=== PATIENT | male | born 1990 | race Caucasian/White ===

== ENCOUNTER 2020-07-17 01:55 | Emergency (ER) | payer BC ==
[~2020-07-17] VITALS: Ht 182.9 cm; Wt 107.9 kg
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
[2020-07-17 04:25] VITALS: BP 137/80
== END 2020-07-17 04:27 | disposition home or self-care (01) ==
LOC: M ED 01:55
DX: S76.112A Strain of left quadriceps muscle, fascia and tendon, initial encounter (principal); W01.0XXA Fall on same level from slipping, tripping and stumbling without subsequent striking against object, initial encounter; Y92.71 Barn as the place of occurrence of the external cause; Y93.K9 Activity, other involving animal care; Y99.0 Civilian activity done for income or pay

== ENCOUNTER 2020-09-07 08:18 | Emergency (ER) | payer OTHER, BC ==
[~2020-09-07] VITALS: Ht 182.9 cm; Wt 106.8 kg
[2020-09-07] MEDS ORDERED: ISOVUE-370 76% 100ML VIAL As Ordered ONE (08:45)
[2020-09-07 08:56] LABS: BASO % 0.3 % (0.0-1.0); EOS # 0.1 10^3/uL (0.0-0.5); EOS % 1.4 % (0.0-3.0); HEMATOCRIT 43.5 % (42.0-52.0); HEMOGLOBIN 14.6 g/dl (13.5-17.5); LYMPH # 2.9 10^3/uL (1.5-5.0); LYMPH % 28.1 % (24.0-44.0); MEAN CORPUSCULAR HEMOGLOBIN 29.3 pg (27.0-33.0); MEAN CORPUSCULAR HGB CONC 33.6 g/dl (32.0-36.5); MEAN CORPUSCULAR VOLUME 87.2 fl (80.0-96.0); MONO % 9.5 % (2.0-8.0); NEUTROPHILS # 6.3 10^3/uL (1.5-8.5); NEUTROPHILS % 60.4 % (36.0-66.0); PLATELET COUNT, AUTOMATED 199 10^3/uL (150-450); RED BLOOD COUNT 4.99 10^6/uL (4.30-6.10); WHITE BLOOD COUNT 10.3 10^3/uL (4.0-10.0)
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
[2020-09-07 09:29] LABS: ALBUMIN 4.3 GM/DL (3.2-5.2); BILIRUBIN,DIRECT 0.1 MG/DL (0.0-0.2); BILIRUBIN,TOTAL 0.4 MG/DL (0.2-1.0); TOTAL PROTEIN 7.5 GM/DL (6.4-8.2)
[2020-09-07 09:53] LABS: APPEARANCE, URINE CLEAR (CLEAR); BACTERIA, URINE AUTO NEGATIVE (NEGATIVE); BILIRUBIN, URINE AUTO NEGATIVE (NEGATIVE); BLOOD, URINE BLOOD NEGATIVE (NEGATIVE); COLOR, URINE YELLOW (YELLOW); GLUCOSE, URINE (UA) AUTO NEGATIVE (NEGATIVE); KETONE, URINE AUTO TRACE mg/dL (NEGATIVE); LEUKOCYTE ESTERASE, URINE AUTO NEGATIVE (NEGATIVE); NITRITE, URINE AUTO NEGATIVE (NEGATIVE); PROTEIN, URINE AUTO NEGATIVE (NEGATIVE); RBC, URINE AUTO 0 /HPF (0-3); SPECIFIC GRAVITY URINE AUTO 1.043 (1.002-1.035); SQUAMOUS EPITHELIAL CELL UR AU 0 /HPF (0-6); UROBILINOGEN, URINE AUTO 0.2 mg/dL (0.0-2.0); WBC, URINE AUTO 1 /HPF (0-3)
[2020-09-07 10:43] VITALS: BP 137/83
== END 2020-09-07 10:48 | disposition home or self-care (01) ==
LOC: M ED 08:18 → EDBD 08:18 → M ED 10:48
DX: R07.81 Pleurodynia (principal); M25.562 Pain in left knee; V49.00XA Driver injured in collision with unspecified motor vehicles in nontraffic accident, initial encounter; J34.1 Cyst and mucocele of nose and nasal sinus
CPT/HCPCS: 36415; 70450; 71260; 72125; 74177; 80047; 80076; 81001; 85025; 86850; 86900; 86901; 99284; Q9967

== ENCOUNTER 2022-12-17 22:35 | Emergency (ER) | payer OTHER, BC ==
[~2022-12-17] VITALS: Ht 182.9 cm; Wt 121.3 kg
[2022-12-17 22:36] VITALS: BP 143/91; TEMP 97.6; O2SAT 100
== END 2022-12-18 00:34 | disposition home or self-care (01) ==
LOC: M ED 22:35
DX: S00.83XA Contusion of other part of head, initial encounter (principal); W22.09XA Striking against other stationary object, initial encounter; Y99.0 Civilian activity done for income or pay

== ENCOUNTER 2024-02-08 09:29 | Emergency (ER) | payer BC, OTHER ==
[~2024-02-08] VITALS: Ht 182.9 cm; Wt 122.2 kg
[2024-02-08] MEDS: IBUPROFEN 600MG TAB PO ONE (11:27)
[2024-02-08 11:41] VITALS: BP 160/90; TEMP 98.4; O2SAT 97
== END 2024-02-08 11:45 | disposition home or self-care (01) ==
LOC: M ED 09:29
DX: S93.401A Sprain of unspecified ligament of right ankle, initial encounter (principal); W01.0XXA Fall on same level from slipping, tripping and stumbling without subsequent striking against object, initial encounter; F17.200 Nicotine dependence, unspecified, uncomplicated; Y92.007 Garden or yard of unspecified non-institutional (private) residence as the place of occurrence of the external cause; Y93.89 Activity, other specified; Y99.9 Unspecified external cause status

== ENCOUNTER 2024-04-21 16:39 | Emergency (ER) | payer BC ==
[~2024-04-21] VITALS: Ht 182.9 cm; Wt 126.0 kg
[2024-04-21] MEDS ORDERED: BENZ200C70 (16:48)
[2024-04-21] MEDS ORDERED: AMOX875T2 (16:48)
[2024-04-21 19:16] LABS: BASO % 0.1 % (0.0-1.0); EOS # 0.2 10^3/uL (0.0-0.5); EOS % 2.2 % (0.0-3.0); HEMATOCRIT 41.1 % (42.0-52.0); LYMPH # 1.7 10^3/uL (1.5-5.0); LYMPH % 19.6 % (24.0-44.0); MEAN CORPUSCULAR HEMOGLOBIN 29.2 pg (27.0-33.0); MEAN CORPUSCULAR HGB CONC 34.1 g/dl (32.0-36.5); MEAN CORPUSCULAR VOLUME 85.8 fl (80.0-96.0); MONO % 11.1 % (2.0-8.0); NEUTROPHILS # 5.8 10^3/uL (1.5-8.5); NEUTROPHILS % 66.7 % (36.0-66.0); PLATELET COUNT, AUTOMATED 197 10^3/uL (150-450); RED BLOOD COUNT 4.79 10^6/uL (4.30-6.10); WHITE BLOOD COUNT 8.6 10^3/uL (4.0-10.0)
[2024-04-21 19:42] LABS: BLOOD UREA NITROGEN 15 MG/DL (9-23); CALCIUM LEVEL 9.9 MG/DL (8.5-10.1); CARBON DIOXIDE LEVEL 26 MMOL/L (20-31); CHLORIDE LEVEL 106 MMOL/L (98-107); CREATININE FOR GFR 0.77 MG/DL (0.70-1.30); GLOMERULAR FILTRATION RATE > 60.0 (>60); GLUCOSE, FASTING 97 MG/DL (60-100); POTASSIUM SERUM 3.7 MMOL/L (3.5-5.1); SODIUM LEVEL 138 MMOL/L (136-145)
[2024-04-21] MEDS: BENZONATATE 100MG CAPSULE PO ONE (19:57)
[2024-04-21] MEDS ORDERED: AZIT-12 PO (20:34)
[2024-04-21 20:39] VITALS: BP 135/73; TEMP 99.2; O2SAT 96
== END 2024-04-21 20:58 | disposition home or self-care (01) ==
LOC: M ED 16:39
DX: J15.7 Pneumonia due to Mycoplasma pneumoniae (principal); Z79.2 Long term (current) use of antibiotics; Z79.899 Other long term (current) drug therapy

== ENCOUNTER 2024-08-11 18:58 | Emergency (ER) | payer BC ==
[~2024-08-11] VITALS: Ht 182.9 cm; Wt 121.9 kg
[~2024-08-11 18:58] MED LIST: AMOX875T2; AZIT-12 PO; BENZ200C70
[2024-08-11 19:05] VITALS: BP 154/95; TEMP 97.5; O2SAT 98
[2024-08-11] MEDS: IBUPROFEN 600MG TAB PO ONE (20:44)
== END 2024-08-11 21:13 | disposition home or self-care (01) ==
LOC: M ED 18:58
DX: S90.31XA Contusion of right foot, initial encounter (principal); L60.0 Ingrowing nail; W55.22XA Struck by cow, initial encounter; Y92.71 Barn as the place of occurrence of the external cause; Y93.89 Activity, other specified; Y99.0 Civilian activity done for income or pay

== ENCOUNTER 2024-10-27 08:03 | Emergency (ER) | payer BC ==
[~2024-10-27] VITALS: Ht 182.9 cm; Wt 124.9 kg
[2024-10-27 09:06] LABS: KETONE, URINE AUTO RFX NEGATIVE (NEGATIVE); LEUKOCYTE ESTERASE UR AUTO RFX NEGATIVE (NEGATIVE); MUCUS, URINE RFX SMALL (NEGATIVE); NITRITE, URINE AUTO RFX NEGATIVE (NEGATIVE); RBC, URINE AUTO RFX 0 /HPF (0-3); SQUAM EPITHELIAL CELL UR AURFX 0 /HPF (0-6); WBC, URINE AUTO RFX 0 /HPF (0-3)
[2024-10-27 09:54] LABS: BASO % 0.3 % (0.0-1.0); EOS # 0.2 10^3/uL (0.0-0.5); EOS % 2.9 % (0.0-3.0); HEMATOCRIT 41.8 % (42.0-52.0); HEMOGLOBIN 14.2 g/dl (13.5-17.5); LYMPH # 2.1 10^3/uL (1.5-5.0); LYMPH % 33.5 % (24.0-44.0); MEAN CORPUSCULAR VOLUME 85.5 fl (80.0-96.0); MONO # 0.4 10^3/uL (0.0-0.8); NEUTROPHILS # 3.5 10^3/uL (1.5-8.5); NEUTROPHILS % 56.1 % (36.0-66.0); PLATELET COUNT, AUTOMATED 197 10^3/uL (150-450); RED BLOOD COUNT 4.89 10^6/uL (4.30-6.10); WHITE BLOOD COUNT 6.3 10^3/uL (4.0-10.0)
[2024-10-27 10:42] LABS: LIPASE 31 U/L (12-53)
[2024-10-27 10:44] LABS: ALKALINE PHOSPHATASE 87 U/L (40-129); ALT/SGPT 29 U/L (7.0-40); AST/SGOT 24 U/L (<34); BILIRUBIN,DIRECT 0.2 MG/DL (<0.4); BILIRUBIN,TOTAL 0.6 MG/DL (0.3-1.2); BLOOD UREA NITROGEN 15 MG/DL (9-23); CARBON DIOXIDE LEVEL 27 MMOL/L (20-31); CHLORIDE LEVEL 106 MMOL/L (98-107); CK-MB VALUE MASS 1.5 NG/ML (<3.6); CREATININE FOR GFR 0.68 MG/DL (0.70-1.30); GLOMERULAR FILTRATION RATE > 90.0 (>60); GLUCOSE, FASTING 94 MG/DL (60-100); SODIUM LEVEL 141 MMOL/L (136-145); TOTAL PROTEIN 7.2 G/DL (5.7-8.2)
[2024-10-27 10:47] LABS: CPK CREATINE PHOSPHOKINASE 218 U/L (46-171); MB/CK RELATIVE INDEX 0.68 (< OR =4)
[2024-10-27 11:15] VITALS: BP 119/62; TEMP 97.9; O2SAT 99
[2024-10-27] MEDS ORDERED: NAPR-837 PO (11:24)
== END 2024-10-27 11:48 | disposition home or self-care (01) ==
LOC: M ED 08:03
DX: M94.0 Chondrocostal junction syndrome [Tietze] (principal); R07.89 Other chest pain; Z79.1 Long term (current) use of non-steroidal anti-inflammatories (NSAID)